=== PATIENT | female | born 1945 | race Caucasian/White ===

== ENCOUNTER 2017-02-19 14:55 | Observation (INO) | payer MEDICARE, BC ==
[~2017-02-19] VITALS: Ht 154.9 cm; Wt 76.0 kg
[2017-02-19] MEDS ORDERED: POTASSIUM PO (15:22)
[2017-02-19] MEDS ORDERED: AMLO5TAB2 PO (15:22)
[2017-02-19] MEDS ORDERED: SITA100T PO (15:22)
[2017-02-19] MEDS ORDERED: FLUT9.9S NAS (15:22)
[2017-02-19] MEDS ORDERED: PRAV40TA PO (15:22)
[2017-02-19] MEDS ORDERED: OMEP20TA62 PO (15:22)
[2017-02-19] MEDS ORDERED: ALBU0.63 NEB (15:22)
[2017-02-19] MEDS ORDERED: GEMF600T3 PO (15:22)
[2017-02-19] MEDS ORDERED: ASPI-496 PO (15:22)
[2017-02-19] MEDS ORDERED: ALBUTEROL/IPRATROPIUM 2.5MG/0.5MG, 3 ML NPPB ONE (15:30)
[2017-02-19 15:58] LABS: HEMATOCRIT 34.2 % (34.6-47.8); HEMOGLOBIN 10.8 g/dL (11.7-16.4)
[2017-02-19 16:07] LABS: BLOOD UREA NITROGEN 25 mg/dL (7-18)
[2017-02-19 16:11] LABS: DIFF TOTAL CELLS COUNTED 100 CELL DIFF
[2017-02-19 16:13] LABS: VERIFY COUNTS? YES
[2017-02-19 16:14] LABS: ANISOCYTOSIS 1+; MICROCYTOSIS 1+; POLYCHROMASIA 1+
[2017-02-19] MEDS ORDERED: OXYcodone/APAP 5/325MG TABLET PO ONE (16:30)
[2017-02-19] MEDS ORDERED: ALBUTEROL/IPRATROPIUM 2.5MG/0.5MG, 3 ML ONE (16:44)
[2017-02-19] MEDS ORDERED: NS + 20MEQ KCL 1,000 ML IV SCH (16:57)
[2017-02-19] MEDS ORDERED: DOCUSATE 100 MG CAPSULE PO PRN (17:00)
[2017-02-19] MEDS ORDERED: morphine SULFATE 10 MG/ML, 1ML IVPush PRN (17:00)
[2017-02-19] MEDS ORDERED: ONDANSETRON 2MG/ML, 2ML IVPush PRN (17:00)
[2017-02-19] MEDS ORDERED: GUAIFENESIN/DM 200-20MG, 10ML UDC PO PRN (17:00)
[2017-02-19] MEDS ORDERED: POLYETHYLENE GLYCOL 17 GM PACKET PO PRN (17:00)
[2017-02-19] MEDS ORDERED: ACETAMINOPHEN 325 MG TABLET PO PRN (17:00)
[2017-02-19 17:22] LABS: TOTAL IRON BINDING CAPACITY 721 mcg/dL (250-450)
[2017-02-19] MEDS ORDERED: OXYcodone/APAP 5/325MG TABLET ONE (17:42)
[2017-02-19] MEDS ORDERED: ALBUTEROL/IPRATROPIUM 2.5MG/0.5MG, 3 ML NPPB PRN (18:30)
[2017-02-19 19:05] VITALS: BP 163/78
[2017-02-19] MEDS ORDERED: ALBUTEROL SULFATE 2.5 MG/3 ML NPPB PRN (19:30)
[2017-02-19] MEDS ORDERED: HYDR12.53 PO (19:50)
[2017-02-19] MEDS: INSULIN ASPART 100 UNITS/ML, PEN SQ-INSULIN SCH (20:11)
[2017-02-19] MEDS: FERROUS SULFATE 325 MG TABLET PO SCH (20:12)
[2017-02-19] MEDS: POTASSIUM CHLORIDE 10 MEQ TABLET.ER PO SCH (20:12)
[2017-02-19] MEDS: FAMOTIDINE 20 MG TABLET PO SCH (20:13)
[2017-02-19] MEDS: OXYcodone IR 5MG TABLET PO PRN (21:45)
[2017-02-20 00:48] VITALS: BP 127/70
[2017-02-20 02:34] VITALS: BP 147/80
[2017-02-20] MEDS: OXYcodone IR 5MG TABLET PO PRN ×3 (02:39→14:16)
[2017-02-20 05:44] LABS: HEMATOCRIT 30.9 % (34.6-47.8); HEMOGLOBIN 9.6 g/dL (11.7-16.4); WHITE BLOOD COUNT 9.4 x10^3/uL (3.4-10)
[2017-02-20 05:53] LABS: BLOOD UREA NITROGEN 15 mg/dL (7-18)
[2017-02-20 07:41] VITALS: BP 122/74
[2017-02-20] MEDS: INSULIN ASPART 100 UNITS/ML, PEN SQ-INSULIN SCH ×2 (07:54→11:49)
[2017-02-20] MEDS: FERROUS SULFATE 325 MG TABLET PO SCH (07:56)
[2017-02-20] MEDS: POTASSIUM CHLORIDE 10 MEQ TABLET.ER PO SCH (07:56)
[2017-02-20] MEDS: FAMOTIDINE 20 MG TABLET PO SCH (07:56)
[2017-02-20] MEDS ORDERED: PRAVASTATIN 40 MG TABLET PO SCH (09:00)
[2017-02-20] MEDS ORDERED: SITAGLIPTIN 50MG TABLET PO SCH (09:00)
[2017-02-20] MEDS ORDERED: SENNA/DOCUSATE TABLET PO SCH (09:00)
[2017-02-20] MEDS ORDERED: AMLODIPINE 5 MG TABLET PO SCH (09:00)
[2017-02-20] MEDS ORDERED: GEMFIBROZIL 600 MG TABLET PO SCH (09:00)
[2017-02-20 13:31] VITALS: BP 118/71
== END 2017-02-20 14:15 | disposition home or self-care (01) ==
LOC: SUATTDRO 16:35 → ED 16:37 → EDIP 16:38 → ED 17:46 → 3NE 19:19
PROVIDERS: ADMIT Family Medicine; ATTEND Family Medicine
DX: R06.03 Acute respiratory distress (principal); R09.02 Hypoxemia; D50.9 Iron deficiency anemia, unspecified; E11.9 Type 2 diabetes mellitus without complications; E44.0 Moderate protein-calorie malnutrition; E86.0 Dehydration; G47.33 Obstructive sleep apnea (adult) (pediatric); J42 Unspecified chronic bronchitis; J45.909 Unspecified asthma, uncomplicated; K21.9 Gastro-esophageal reflux disease without esophagitis; Z82.3 Family history of stroke
CPT/HCPCS: 36415; 71020; 80048; 82040; 82962; 83540; 83550; 85025; 94640; 96360; 96361; 96372; 99285; G0378; J1815; J3480; J7512; J7620

== ENCOUNTER → 2017-12-10 | Outpatient (CLI) | payer MEDICARE, BC ==
[~2017-12-10] MED LIST: ALBU0.63 NEB; AMLO5TAB2 PO; ASPI-496 PO; FLUT9.9S NAS; GEMF600T3 PO; HYDR12.53 PO; OMEP20TA62 PO; POTASSIUM PO; PRAV40TA PO; SITA100T PO
== END | disposition home or self-care (01) ==
LOC: CFH 11:44
PROVIDERS: ATTEND Registered Nurse
DX: I25.10 Atherosclerotic heart disease of native coronary artery without angina pectoris (principal); R05 Cough
CPT/HCPCS: 71250